=== PATIENT | female | born 1970 ===

== ENCOUNTER 2022-03-24 16:03 | Inpatient (IN) | payer MEDICAID, OTHER ==
[~2022-03-24] VITALS: Ht 154.9 cm; Wt 67.7 kg
[2022-03-24] MEDS ORDERED: ASPirin 81 mg TAB PO ONE (16:30)
[2022-03-24 17:11] LABS: Basophils # (auto) 0 10 ^3/uL (0-0.2); Basophils % (auto) 0.7 % (0.0-2.0); Eosinophils # (auto) 0.2 10 ^3/uL (0-0.8); Eosinophils % (auto) 3.9 % (0.0-7.0); Hematocrit 30.5 % (36.0-46.0); Hemoglobin 10.3 g/dL (12.2-16.2); Lymphocytes # (auto) 1.2 10 ^3/uL (0.4-5.4); Lymphocytes % (auto) 20.9 % (10.0-50.0); Mean Corpuscular Hemoglobin 30.5 pg (28.0-32.0); Mean Corpuscular Hgb Conc. 33.8 g/dL (32.0-36.0); Mean Corpuscular Volume 90.1 fL (80.0-100.0); Monocytes # (auto) 0.4 10 ^3/uL (0-1.3); Monocytes % (auto) 6.7 % (0.0-12.0); Neutrophils # (auto) 3.9 10 ^3/uL (1.6-8.6); Neutrophils % (auto) 67.8 % (37.0-80.0); Nucleated Red Blood Cells % 0.1 %; Red Blood Cells 3.39 10^6/uL (4.0-5.20); Red Cell Distribution Width 13.2 % (11.8-14.3); White Blood Cell 5.8 10^3/uL (4.4-10.8)
[2022-03-24 17:31] LABS: Albumin 3.2 g/dL (3.4-5.0); BUN/Creatinine Ratio 6.5; Calcium 8.2 mg/dL (8.5-10.1); Magnesium 2.6 mg/dL (1.6-2.6); Potassium 3.3 mmol/L (3.5-5.1)
[2022-03-24 17:34] LABS: Bilirubin, Total 0.2 mg/dL (0.2-1.0); Total Protein 6.3 g/dL (6.4-8.2)
[2022-03-24] MEDS ORDERED: PANTOPRAZOLE 40 MG/10 ML VIAL INJ IV ONE (20:45)
[2022-03-24] MEDS ORDERED: NITROGLYCERIN 0.4 MG SL TAB SL PRN (20:45)
[2022-03-24] MEDS ORDERED: MORPHINE SULFATE INJ 2 MG/ml SYRG IV PRN (20:45)
[2022-03-24] MEDS ORDERED: ATOR40TA52 PO (20:58)
[2022-03-24] MEDS ORDERED: GENT0.1C3 TOP (20:58)
[2022-03-24] MEDS ORDERED: HYDR-4798 (20:58)
[2022-03-24] MEDS ORDERED: LACT10SO3 PO (20:58)
[2022-03-24] MEDS ORDERED: CARV12.544 PO (20:58)
[2022-03-24] MEDS ORDERED: SEVE800T10 PO (20:58)
[2022-03-24] MEDS ORDERED: HYDR25TA87 PO (20:58)
[2022-03-24 21:19] LABS: Cholesterol 228 mg/dL (< 200)
[2022-03-24 21:21] LABS: HDL Cholesterol 49 mg/dL (40-59); LDL Cholesterol 158 mg/dL (< 100); Triglycerides 168 mg/dL (< 150)
[2022-03-24] MEDS: HEPARIN SODIUM (PORCINE) 5000 UNITS/ML 1ML VIAL SC SCH (22:00)
[2022-03-24] MEDS: hydrALAZINE HCL 25 MG TAB PO SCH (22:18)
[2022-03-24] MEDS: CARVEDILOL 12.5 MG TAB PO SCH (22:18)
[2022-03-25 01:10] LABS: Urine Bacteria FEW /hpf (None Seen); Urine Blood TRACE /uL (Negative); Urine Specific Gravity 1.006 (1.001-1.035); Urine WBC 6 /hpf (0 - 5)
[2022-03-25] MEDS ORDERED: cefTRIAXone 1GM/50ML D5W 50 ML IV ONE (04:30)
[2022-03-25 06:25] LABS: Basophils # (auto) 0 10 ^3/uL (0-0.2); Basophils % (auto) 0.8 % (0.0-2.0); Eosinophils # (auto) 0.3 10 ^3/uL (0-0.8); Eosinophils % (auto) 5.4 % (0.0-7.0); Hematocrit 30.2 % (36.0-46.0); Hemoglobin 9.7 g/dL (12.2-16.2); Lymphocytes # (auto) 1.1 10 ^3/uL (0.4-5.4); Lymphocytes % (auto) 22.8 % (10.0-50.0); Mean Corpuscular Hemoglobin 29.3 pg (28.0-32.0); Mean Corpuscular Hgb Conc. 32.1 g/dL (32.0-36.0); Mean Corpuscular Volume 91.3 fL (80.0-100.0); Monocytes # (auto) 0.4 10 ^3/uL (0-1.3); Monocytes % (auto) 8.6 % (0.0-12.0); Neutrophils # (auto) 2.9 10 ^3/uL (1.6-8.6); Neutrophils % (auto) 62.4 % (37.0-80.0); Red Blood Cells 3.31 10^6/uL (4.0-5.20); Red Cell Distribution Width 13.5 % (11.8-14.3); White Blood Cell 4.7 10^3/uL (4.4-10.8)
[2022-03-25 06:47] LABS: Albumin 2.9 g/dL (3.4-5.0); Calcium 8.7 mg/dL (8.5-10.1); Potassium 3.2 mmol/L (3.5-5.1)
[2022-03-25 06:51] LABS: BUN/Creatinine Ratio 6.1
[2022-03-25 06:53] LABS: Bilirubin, Total 0.3 mg/dL (0.2-1.0); Total Protein 6.4 g/dL (6.4-8.2)
[2022-03-25 08:12] LABS: INR 0.92 (0.9-1.15); Partial Thromboplastin Time 25.4 sec (24.6-33.4)
[2022-03-25] MEDS: SEVELAMER 800 MG TAB PO SCH ×3 (08:19→18:11)
[2022-03-25] MEDS: cefTRIAXone 1GM/50ML D5W 50 ML IV SCH (10:43)
[2022-03-25] MEDS: hydrALAZINE HCL 25 MG TAB PO SCH ×2 (10:51→23:24)
[2022-03-25] MEDS: ASPirin 81 mg TAB PO SCH (10:51)
[2022-03-25] MEDS: PANTOPRAZOLE 40 MG/10 ML VIAL INJ IV SCH (10:51)
[2022-03-25] MEDS: HEPARIN SODIUM (PORCINE) 5000 UNITS/ML 1ML VIAL SC SCH ×2 (10:52→22:00)
[2022-03-25] MEDS: CARVEDILOL 12.5 MG TAB PO SCH ×2 (10:52→23:24)
[2022-03-25] MEDS ORDERED: DOCUSATE SOD 100 MG CAP PO PRN (20:15)
[2022-03-25 22:00] VITALS: BP 136/80
[2022-03-26] MEDS ORDERED: POTASSIUM CHL 20 Meq TABLET PO ONE (02:30)
[2022-03-26 05:00] VITALS: BP 130/66
[2022-03-26 08:00] VITALS: BP 123/70
[2022-03-26] MEDS: cefTRIAXone 1GM/50ML D5W 50 ML IV SCH (08:55)
[2022-03-26] MEDS: PANTOPRAZOLE 40 MG/10 ML VIAL INJ IV SCH (08:56)
[2022-03-26] MEDS: ASPirin 81 mg TAB PO SCH (08:57)
[2022-03-26] MEDS: SEVELAMER 800 MG TAB PO SCH ×3 (08:57→17:56)
[2022-03-26] MEDS: hydrALAZINE HCL 25 MG TAB PO SCH ×2 (08:58→21:19)
[2022-03-26] MEDS: CARVEDILOL 12.5 MG TAB PO SCH ×2 (08:58→21:19)
[2022-03-26 09:00] VITALS: BP 123/70
[2022-03-26] MEDS: HEPARIN SODIUM (PORCINE) 5000 UNITS/ML 1ML VIAL SC SCH ×2 (09:05→21:18)
[2022-03-26] MEDS ORDERED: BISACODYL 10 MG RECT SUPP PR ONE (10:45)
[2022-03-26 13:00] VITALS: BP 120/71
[2022-03-26 17:06] VITALS: BP 126/76
[2022-03-26 22:00] VITALS: BP 122/86
[2022-03-26] MEDS ORDERED: MELATONIN 5 MG TAB ONE (23:14)
[2022-03-26] MEDS: MELATONIN 5 MG TAB PO ONE (23:17)
[2022-03-27 05:00] VITALS: BP 98/61
[2022-03-27 08:00] VITALS: BP 112/66
[2022-03-27] MEDS: SEVELAMER 800 MG TAB PO SCH ×3 (08:45→17:31)
[2022-03-27] MEDS: ASPirin 81 mg TAB PO SCH (08:46)
[2022-03-27] MEDS: cefTRIAXone 1GM/50ML D5W 50 ML IV SCH (08:46)
[2022-03-27] MEDS: PANTOPRAZOLE 40 MG/10 ML VIAL INJ IV SCH (08:47)
[2022-03-27] MEDS: CARVEDILOL 12.5 MG TAB PO SCH ×2 (08:47→22:10)
[2022-03-27] MEDS: hydrALAZINE HCL 25 MG TAB PO SCH ×2 (08:48→22:00)
[2022-03-27] MEDS: HEPARIN SODIUM (PORCINE) 5000 UNITS/ML 1ML VIAL SC SCH ×2 (08:58→22:09)
[2022-03-27 09:00] VITALS: BP 112/66
[2022-03-27] MEDS ORDERED: LORazepam 2MG/ML-1ML VIAL IV PRN (12:30)
[2022-03-27] MEDS ORDERED: LORazepam 2MG/ML-1ML VIAL IV ONE (12:30)
[2022-03-27 13:00] VITALS: BP 91/62
[2022-03-27] MEDS: LACTULOSE 20Gm/30ML SOLN PO PRN (16:34)
[2022-03-27 17:00] VITALS: BP 116/72
[2022-03-27 22:00] VITALS: BP_SYST 103; BP_SYST 97; BP_DIAS 60; BP_DIAS 65
[2022-03-27] MEDS: MELATONIN 5 MG TAB PO ONE (22:04)
[2022-03-28 05:00] VITALS: BP 93/54
[2022-03-28 06:19] VITALS: BP 107/60
[2022-03-28 06:42] LABS: BUN/Creatinine Ratio 6.1; Potassium 3.3 mmol/L (3.5-5.1)
[2022-03-28 08:57] VITALS: BP 97/54
[2022-03-28] MEDS: CARVEDILOL 12.5 MG TAB PO SCH ×2 (09:40→22:55)
[2022-03-28] MEDS: hydrALAZINE HCL 25 MG TAB PO SCH (09:40)
[2022-03-28] MEDS: PANTOPRAZOLE 40 MG/10 ML VIAL INJ IV SCH (09:42)
[2022-03-28] MEDS: cefTRIAXone 1GM/50ML D5W 50 ML IV SCH (09:42)
[2022-03-28] MEDS: ASPirin 81 mg TAB PO SCH (09:43)
[2022-03-28] MEDS: SEVELAMER 800 MG TAB PO SCH ×3 (09:44→17:43)
[2022-03-28] MEDS: HEPARIN SODIUM (PORCINE) 5000 UNITS/ML 1ML VIAL SC SCH ×2 (09:52→22:56)
[2022-03-28 12:36] VITALS: BP 128/71
[2022-03-28] MEDS ORDERED: hydrALAZINE HCL 25 MG TAB PO PRN (12:45)
[2022-03-28] MEDS ORDERED: FUROSEMIDE 40 MG/4 ML VIAL IV ONE (15:15)
[2022-03-28 16:38] VITALS: BP 134/64
[2022-03-28 22:00] VITALS: BP 127/74
[2022-03-29] VITALS (9 sets, daily range): BP systolic 105–139; BP diastolic 58–94
[2022-03-29 06:40] LABS: INR 0.97 (0.9-1.15); Partial Thromboplastin Time 35.2 sec (24.6-33.4)
[2022-03-29 06:41] LABS: Basophils # (auto) 0 10 ^3/uL (0-0.2); Eosinophils # (auto) 0.2 10 ^3/uL (0-0.8); Hemoglobin 8.1 g/dL (12.2-16.2); Mean Corpuscular Hgb Conc. 32.5 g/dL (32.0-36.0); Monocytes # (auto) 0.3 10 ^3/uL (0-1.3)
[2022-03-29 06:45] LABS: Basophils % (auto) 0.8 % (0.0-2.0); Eosinophils % (auto) 4.3 % (0.0-7.0); Hematocrit 24.8 % (36.0-46.0); Lymphocytes # (auto) 1.1 10 ^3/uL (0.4-5.4); Mean Corpuscular Hemoglobin 29.6 pg (28.0-32.0); Mean Corpuscular Volume 91.3 fL (80.0-100.0); Monocytes % (auto) 7.1 % (0.0-12.0); Neutrophils % (auto) 63.8 % (37.0-80.0); Red Blood Cells 2.72 10^6/uL (4.0-5.20); Red Cell Distribution Width 13.3 % (11.8-14.3); White Blood Cell 4.7 10^3/uL (4.4-10.8)
[2022-03-29 06:51] LABS: % Iron Saturation 29.4 % (15-50)
[2022-03-29] MEDS ORDERED: SODIUM CHL 0.9% 1000 ML BAG XX ONE (07:00)
[2022-03-29] MEDS: SEVELAMER 800 MG TAB PO SCH ×3 (08:00→18:12)
[2022-03-29] MEDS: PANTOPRAZOLE 40 MG/10 ML VIAL INJ IV SCH (08:28)
[2022-03-29] MEDS: cefTRIAXone 1GM/50ML D5W 50 ML IV SCH (08:28)
[2022-03-29] MEDS: CARVEDILOL 12.5 MG TAB PO SCH ×2 (08:33→22:00)
[2022-03-29] MEDS: HEPARIN SODIUM (PORCINE) 5000 UNITS/ML 1ML VIAL SC SCH ×2 (08:33→22:24)
[2022-03-29 10:12] LABS: BUN/Creatinine Ratio 6.4; Magnesium 2.8 mg/dL (1.6-2.6); Potassium 3.4 mmol/L (3.5-5.1)
[2022-03-29] MEDS ORDERED: LIDOCAINE 2%HCL (LOCAL ANESTH.) INJ 20ML MDV ONE (15:33)
[2022-03-29] MEDS ORDERED: HEPARIN SODIUM (PORCINE) 5000 UNITS/ML 1ML VIAL ONE (15:38)
[2022-03-29] MEDS ORDERED: MIDAZOLAM HCL 2MG/2ML 2ml VIAL (1mg/ml) ONE (15:38)
[2022-03-29] MEDS ORDERED: fentaNYL CITRATE 100 MCG/2 ML VL ONE (15:38)
[2022-03-29] MEDS: ACETAMINOPHEN 325 MG TAB PO PRN (20:30)
[2022-03-29] MEDS ORDERED: EPOETIN ALFA-EPBX 4,000 UNIT/ML VIAL SC ONE (21:00)
[2022-03-29] MEDS ORDERED: EPOETIN ALFA-EPBX 10,000 UNIT/1ML VIAL SC ONE (21:00)
[2022-03-30 05:00] VITALS: BP 123/78
[2022-03-30] MEDS: PANTOPRAZOLE 40 MG/10 ML VIAL INJ IV SCH (08:55)
[2022-03-30] MEDS: cefTRIAXone 1GM/50ML D5W 50 ML IV SCH (08:55)
[2022-03-30] MEDS: ACETAMINOPHEN 325 MG TAB PO PRN (08:55)
[2022-03-30] MEDS: SEVELAMER 800 MG TAB PO SCH ×3 (08:56→18:36)
[2022-03-30 09:00] VITALS: BP 114/64
[2022-03-30] MEDS: HEPARIN SODIUM (PORCINE) 5000 UNITS/ML 1ML VIAL SC SCH ×2 (09:04→21:18)
[2022-03-30] MEDS: CARVEDILOL 12.5 MG TAB PO SCH ×2 (09:09→21:14)
[2022-03-30] MEDS: LACTULOSE 20Gm/30ML SOLN PO PRN (11:34)
[2022-03-30 13:00] VITALS: BP 131/81
[2022-03-30] MEDS ORDERED: SODIUM CHL 0.9% 1000 ML BAG XX ONE (15:45)
[2022-03-30] MEDS ORDERED: ALBUMIN 25% 100 ML IV ONE (15:45)
[2022-03-30 17:00] VITALS: BP 137/75
[2022-03-30 20:00] VITALS: BP 124/71
[2022-03-30] MEDS: DOCUSATE SOD 100 MG CAP PO SCH (21:13)
[2022-03-30 22:00] VITALS: BP 124/71
[2022-03-31 04:51] LABS: Basophils # (auto) 0 10 ^3/uL (0-0.2); Basophils % (auto) 0.8 % (0.0-2.0); Eosinophils # (auto) 0.3 10 ^3/uL (0-0.8); Eosinophils % (auto) 4.7 % (0.0-7.0); Hemoglobin 8.6 g/dL (12.2-16.2); Lymphocytes # (auto) 1.4 10 ^3/uL (0.4-5.4); Lymphocytes % (auto) 25.8 % (10.0-50.0); Mean Corpuscular Hemoglobin 30.4 pg (28.0-32.0); Mean Corpuscular Volume 91.9 fL (80.0-100.0); Monocytes # (auto) 0.4 10 ^3/uL (0-1.3); Monocytes % (auto) 7.1 % (0.0-12.0); Neutrophils # (auto) 3.4 10 ^3/uL (1.6-8.6); Neutrophils % (auto) 61.6 % (37.0-80.0); Nucleated Red Blood Cells % 0.1 %; Red Blood Cells 2.82 10^6/uL (4.0-5.20); Red Cell Distribution Width 13.4 % (11.8-14.3); White Blood Cell 5.5 10^3/uL (4.4-10.8)
[2022-03-31 05:00] VITALS: BP 126/67
[2022-03-31 05:06] LABS: BUN/Creatinine Ratio 5.8; Calcium 8.3 mg/dL (8.5-10.1); Potassium 3.8 mmol/L (3.5-5.1)
[2022-03-31 08:00] VITALS: BP 112/64
[2022-03-31 09:00] VITALS: BP 112/64
[2022-03-31] MEDS ORDERED: ENOXAPARIN SOD 40 MG/0.4 ML SYRINGE SC SCH (10:00)
[2022-03-31] MEDS ORDERED: LACTULOSE 20Gm/30ML SOLN PO ONE (10:30)
[2022-03-31] MEDS ORDERED: EPOETIN ALFA-EPBX 10,000 UNIT/1ML VIAL SC ONE (11:00)
[2022-03-31] MEDS: HEPARIN SODIUM (PORCINE) 5000 UNITS/ML 1ML VIAL SC SCH (11:09)
[2022-03-31] MEDS: DOCUSATE SOD 100 MG CAP PO SCH (11:10)
[2022-03-31] MEDS: PANTOPRAZOLE 40 MG/10 ML VIAL INJ IV SCH (11:11)
[2022-03-31] MEDS: cefTRIAXone 1GM/50ML D5W 50 ML IV SCH ×2 (11:11→14:55)
[2022-03-31] MEDS: SEVELAMER 800 MG TAB PO SCH ×2 (11:11→11:26)
[2022-03-31] MEDS: CARVEDILOL 12.5 MG TAB PO SCH (11:11)
[2022-03-31 11:40] LABS: Hepatitis A Ab IgM Negative; Hepatitis B Core IgM Negative; Hepatitis C Antibody Negative (Negative)
[2022-03-31 12:34] VITALS: BP 120/64
[2022-03-31 16:29] VITALS: BP 120/64
[2022-03-31] MEDS ORDERED: HEPARIN SODIUM (PORCINE) 5000 UNITS/ML 1ML VIAL SC SCH (22:00)
== END 2022-03-31 16:56 | disposition home or self-care (01) | DRG 143 ==
LOC: ER 16:03 → TELE 20:53 → TELE-CENTR 03-25 21:13
PROVIDERS: ADMIT Nurse Practitioner Family; ATTEND Internal Medicine Pulmonary Disease
PROC: 0W993ZZ Drainage of Right Pleural Cavity, Percutaneous Approach (ICD-10-PCS; 2022-03-25)
PROC: 0JH63XZ Insertion of Tunneled Vascular Access Device into Chest Subcutaneous Tissue and Fascia, Percutaneous Approach (ICD-10-PCS; principal; 2022-03-29)
PROC: 02H633Z Insertion of Infusion Device into Right Atrium, Percutaneous Approach (ICD-10-PCS; 2022-03-29)
PROC: B5181ZA Fluoroscopy of Superior Vena Cava using Low Osmolar Contrast, Guidance (ICD-10-PCS; 2022-03-29)
PROC: B548ZZA Ultrasonography of Superior Vena Cava, Guidance (ICD-10-PCS; 2022-03-29)
PROC: 0W993ZZ Drainage of Right Pleural Cavity, Percutaneous Approach (ICD-10-PCS; 2022-03-29)
PROC: 5A1D70Z Performance of Urinary Filtration, Intermittent, Less than 6 Hours Per Day (ICD-10-PCS; 2022-03-29)
PROC: 5A1D70Z Performance of Urinary Filtration, Intermittent, Less than 6 Hours Per Day (ICD-10-PCS; 2022-03-31)
DX: J90 Pleural effusion, not elsewhere classified (principal); J96.00 Acute respiratory failure, unspecified whether with hypoxia or hypercapnia; E46 Unspecified protein-calorie malnutrition; I12.0 Hypertensive chronic kidney disease with stage 5 chronic kidney disease or end stage renal disease; D63.8 Anemia in other chronic diseases classified elsewhere; E83.51 Hypocalcemia; D63.1 Anemia in chronic kidney disease; Z20.822 Contact with and (suspected) exposure to COVID-19; J98.11 Atelectasis; F17.210 Nicotine dependence, cigarettes, uncomplicated; I24.9 Acute ischemic heart disease, unspecified; E87.6 Hypokalemia; K59.00 Constipation, unspecified; N18.6 End stage renal disease; Z99.2 Dependence on renal dialysis; Z79.899 Other long term (current) drug therapy; Z82.49 Family history of ischemic heart disease and other diseases of the circulatory system; Z83.3 Family history of diabetes mellitus; Z68.26 Body mass index [BMI] 26.0-26.9, adult
CPT/HCPCS: 36415; 36558; 71045; 71046; 74176; 76000; 76604; 76942; 77001; 80048; 80053; 80061; 80074; 81001; 82728; 83036; 83540; 83550; 83735; 83986; 84132; 84443; 84484; 85025; 85379; 85610; 85730; 87070; 87081; 87205; 87426; 89051; 90935; 93005; 93306; 96365; 96375; 99152; C9113; G0378; J0696; J2250